=== PATIENT | female | born 1960 | race Caucasian/White ===

== ENCOUNTER 2017-03-15 08:08 | Observation (INO) | payer OTHER ==
[~2017-03-15] VITALS: Ht 157.5 cm; Wt 102.3 kg
--- NOTE | ~2017-03-15 | HEMODYNAMI ---
PATIENT:ASHLEY CORONA MEDICAL RECORD: [id number] : 60 LOCATION:[facility] D.2109 ADMISSION DATE: 03/15/17 Generatedon:03/15/201716:02 Patient name: ASHLEY CORONA Patient #: [id number] SSN: DO B: 1960 Date of study: 03/15/2017 Page: Of Hemodynamic Procedure Report Patient Data Patient Demographics Procedure consent was obtained First Name: ASHLEY Gender: Female Last Name: CJ : 1960 Middle Initial: A Age: 56 year(s) Patient #: [id number] Race: Unknown Additional ID: [id number] Contact details [address]: [address] [place] [address] State: [place] City: [place] Zip code: [address] Past Medical History Allergies Allergen Reaction Date Comments Reported Other allergy 03/15/2017 Hydrocodone, azithromycin Admission Admission Data Admission Date: 03/15/2017 Admission Time: 10:38 Room #: D.2109 Lab Results Lab Result Date: 03/15/2017 Lab Result Time: 0:00 Biochemistry Name Units Result Min Max CK-MB ng/ml 1.1 --(-*--)-- 0 3.6 Creatinine mg/dl 0.9 --(-*--)-- 0.6 1.3 Creatinine l 72 --(-*--)-- 21 215 Kinase Troponin l ng/ml 0.017 --(-*--)-- 0 0.06 CBC Name Units Result Min Max Hematocrit % 41.6 -*(----)-- 42 54 Hemoglobin g/dl 13.7 --(*---)-- 13.5 17.5 Procedure Procedure Types Cath Procedure Diagnostic Procedure [facility] w/Coronaries Miscellaneous Procedures Moderate Sedation up to 15 minutes Procedure Description Procedure Date Procedure Date: 03/15/2017 Procedure Start Time: 15:53 Procedure End Time: 16:01 Procedure Staff Name Function Kieran Penn MD Performing Physician Jamal Crespo RT Scrub Elva Alexis RN Nurse Cassidy Fleming RT Monitor Procedure Data Cath Procedure Fluoroscopy Diagnostic fluoroscopy Total fluoroscopy Time: 0.6 time: 0.6 min min Diagnostic fluoroscopy Total fluoroscopy dose: 249 dose: 249 mGy mGy Contrast Material Contrast Material Type Amount (ml) Isovue 300 54 Entry Location Entry Primary Successful Side Size Upsize Upsize Entry Closure Succes sful Closure Location (Fr) 1 (Fr) 2 (Fr) Remarks Device Remarks Femoral Right 5 Fr Exoseal artery Estimated blood loss: 5 ml Diagnostic catheters Device Type Used For End Catheter Placement Cordis 5Fr Pigtail LV Angiography Catheter (MP) Cordis 5Fr JL 4.0 Left Coronary Catheter (MP) Angiography Cordis 5Fr 3DRC Catheter Right Coronary (MP) Angiography Procedure Complications No complications Procedure Medications Medication Administration Route Dosage Oxygen NC 2 l/min Heparin Flush Bag added to field 2 bags (1000units/500ml NS) Lidocaine 2% added to field 20 Versed I.V. 1 mg Fentanyl I.V. 50 mcg Versed I.V. 1 mg Fentanyl I.V. 50 mcg Fentanyl I.V. 50 mcg Hemodynamics Rest HGB: 13.7 (g/dl) Heart Rate: 92 (bpm) Snapshots Pre Cath Intra NCS Post Cath Vital Signs Time Heart Resp SPO2 NIBP (mmHg) Rhythm Pain Sedation Rate (ipm) (%) Status Level (bpm) 15:48:17 84 15 100 148/89(115) NSR 0 (11) 10(A) , No pain 15:52:37 97 12 100 133/85(106) NSR 0 (11) 10(A) , No pain 15:56:55 91 13 97 128/78(113) NSR 0 (11) 9(A) , No pain 16:01:15 89 18 99 117/77(108) NSR 0 (11) 9(A) , No pain Medications Time Medication Route Dose Verified Delivered Reason Notes Effec tiveness by by 15:47:23 Oxygen NC 2 Kieran Stevenson Per l/min Fili Alexis RN physician 15:47:32 Heparin Flush added 2 Kieran Alcaraz used for Bag to bags Fili Penn MD procedure (1000units/500ml field NS) 15:47:38 Lidocaine 2% added 20ml Kieran Alcaraz used for to vial Fili Penn MD procedure field 15:49:05 Versed I.V. 1 mg Kieran Elva for Fili Alexis RN sedation 15:50:16 Fentanyl I.V. 50 Kieran Elva for mcg Fili Alexis RN sedation 15:52:31 Versed I.V. 1 mg Kieran Elva for Fili Alexis RN sedation 15:52:34 Fentanyl I.V. 50 Kieran Elva for mcg Fili Alexis RN sedation 15:54:10 Fentanyl I.V. 50 Kieran Elva for mcg Fili Alexis RN sedation Procedure Log Time Note 15:25:30 Ariel Zacarias RT(R) sent for patient. Start room use. 15:29:21 Time tracking: Regular hours 15:29:25 Plan of Care:Hemodynamics will remain stable., Cardiac rhythm will remain stable., Comfort level will be maintained., Respiratory function will remain adequate., Patient/ family verbilizes understanding of procedure., Procedure tolerated without complication., Recovers from procedure without complications.. 15:39:49 Patient received from PCU to CCL 2 Alert and oriented. Tansferred to table in Supine position. 15:39:50 Warm blankets applied, and eduarda hugger turned on for patient comfort. 15:39:51 Correct patient and procedure confirmed by team. 15:39:52 Signed procedure consent form obtained from patient. 15:39:53 ECG and BP/O2 sat monitors applied to patient. 15:39:54 Full Disclosure recording started 15:40:08 H&P Date Dictated: 03/15/2017 ER History on chart.. 15:40:10 Pre-procedure instructions explained to patient. 15:40:10 Pre-op teaching completed and patient verbalized understanding. 15:40:16 Family in patients room. 15:40:23 Patient NPO since Breakfast. 15:41:05 Patient allergic to Other allergyHydrocodone, azithromycin 15:41:08 Is the patient allergic to Iodine/contrast media? No. 15:41:30 Is patient on blood thinner?No 15:41:34 Patient diabetic? No. 15:44:43 Vital chart was started 15:47:23 Oxygen 2 l/min NC was administered by Elva Alexis RN; Per physician; 15:47:30 Previous problem with sedation/anesthesia? No ? 15:47:32 Heparin Flush Bag (1000units/500ml NS) 2 bags added to field was administered by Kieran Penn MD; used for procedure; 15:47:32 Snore? Yes 15:47:33 Sleep apnea? No 15:47:34 Deviated septum? No 15:47:35 Opens mouth fully? Yes 15:47:35 Sticks out tongue? Yes 15:47:37 Airway obstruction? No ? 15:47:38 Lidocaine 2% 20ml vial added to field was administered by Kieran Penn MD; used for procedure; 15:47:39 Dentures? No ? 15:47:43 Pre procedure: right dorsailis pedis pulse 2+ Normal; easily identifiable; not easily obliterated 15:47:48 Pre procedure: right radial pulse 1+ Palpable, but thready & weak; easily obliterated 15:47:50 Patient pain scale 0/10 ?. 15:47:56 IV patent on arrival in left forearm with 0.9% NaCl at [facility]. 15:48:01 Lab results completed and on chart. 15:48:36 Lab Result : Creatinine 0.9 mg/dl 15:48:36 Lab Result : CK-MB 1.1 ng/ml 15:48:36 Lab Result : Troponin l 0.017 ng/ml 15:48:36 Lab Result : Creatinine Kinase 72 l 15:48:36 Lab Result : Hemoglobin 13.7 g/dl 15:48:36 Lab Result : Hematocrit 41.6 % 15:48:40 Right groin area was prepped with chlora-prep and draped in sterile fashion 15:48:41 Alarms reviewed by R. N. 15:48:41 Sharps counted by scrub and verified by R.N. 15:48:45 Use device set Femoral Dx 15:48:46 Acist Syringe opened to sterile field. 15:48:46 Bag Decanter opened to sterile field. 15:48:47 Medline Cath Pack opened to sterile field. 15:48:47 Terumo 5Fr Milroy Sheath opened to sterile field. 15:48:47 [facility] James 260cm J .035 wire opened to sterile field. 15:48:49 Acist Hand Control opened to sterile field. 15:48:49 Acist Manifold opened to sterile field. 15:48:49 Diagnostic Infinity 5Fr Multipack catheter opened to sterile field. 15:48:50 Tegaderm 4 x 4 opened to sterile field. 15:48:57 Final Timeout: patient, procedure, and site verified with staff and physician. All members of the team are in agreement. 15:48:59 Right groin site verified by team. 15:49:01 Physical assessment completed. ASA score P 2 - A patient with mild systemic disease as per Kieran Penn MD. 15:49:04 Sedation plan: IV Moderate Sedation Versed, Fentanyl 15:49:05 Versed 1 mg I.V. was administered by Elva Alexis RN; for sedation; 15:49:10 Baseline sample Acquired. 15:50:16 Fentanyl 50 mcg I.V. was administered by Elva Alexis RN; for sedation; 15:52:31 Versed 1 mg I.V. was administered by Elva Alexis RN; for sedation; 15:52:34 Fentanyl 50 mcg I.V. was administered by Elva Alexis RN; for sedation; 15:53:03 Procedure started. 15:53:08 Local anesthetic to right femoral artery with Lidocaine 2% by Kieran Penn MD.INITIAL ACCESS ONLY 15:53:32 A 5 Fr sheath was inserted into the Right Femoral artery 15:53:35 Zero performed for pressure channel P1 15:54:10 Fentanyl 50 mcg I.V. was administered by Elva Alexis RN; for sedation; 15:54:29 A Cordis 5Fr Pigtail Catheter (MP) was advanced over the wire and used for LV Angiography. 15:54:53 LV gram done using WEBBER 15:54:58 EF : 50 % 15:55:01 Injector settings: Ml/sec: 10, Volume: 20, 15:55:02 Catheter removed. 15:55:10 A Cordis 5Fr JL 4.0 Catheter (MP) was advanced over the wire and used for Left Coronary Angiography. 15:56:09 Catheter removed. 15:56:29 A Cordis 5Fr 3DRC Catheter (MP) was advanced over the wire and used for Right Coronary Angiography. 15:56:48 Catheter removed. 15:56:56 Cordis 5Fr Exoseal opened to sterile field. 15:57:09 Sheath removed intact; hemostasis achieved with Exoseal to the Right Femoral artery. 15:57:21 Cordis 5Fr Exoseal opened to sterile field. 15:57:24 Procedure ended.(Physican Out) 15:57:34 Fluoroscopy time 00.60 minutes. 15:57:37 Fluoroscopy dose: 249 mGy 15:57:37 Flurop Dose total: 249 15:58:29 Contrast amount:Isovue 300 54ml. 15:58:30 Sharps counted by scrub and verified by R.N. 15:58:34 Insertion/operative site no bleeding no hematoma. 15:58:38 Post-op/insertion site Right Femoral artery dressed using a 4 x 4 and Tegaderm. 15:58:40 Post right femoral artery:stable, clean and dry 15:58:42 Post Procedure Pulses reassessed and unchanged 15:58:45 Post-procedure physical assessment completed. ASA score P 2 - A patient with mild systemic disease as per Kieran Penn MD. 15:58:50 Post procedure rhythm: unchanged. 15:58:52 Estimated blood loss: 5 ml 15:58:58 Post procedure instruction explained to patient.Patient verbalizes understanding. 15:58:58 Patient needs reinforcement of post procedure teaching. 15:59:06 Procedure type changed to Cath procedure, Diagnostic procedure, LHC, LHC w/Coronaries, Miscellaneous Procedures, Moderate Sedation up to 15 minutes 15:59:10 Procedure Complication : No complications 15:59:12 See physician's report for complete and final results. 15:59:29 Procedure and supply charges have been captured, reviewed, submitted and are correct. 16:01:33 Vital chart was stopped 16:01:34 Report given to PCU. 16:01:39 Patient transfered to PCU with Bed. 16:01:43 Procedure ended. 16:01:43 Full Disclosure recording stopped 16:01:51 End room use (Document Last) Device Usage Item Name Manufacture Quantity Catalog Hospital Part Current Minimal Lo t# / Number Charge Number Stock Stock Serial# Code [facility]ist [facility] 1 [id number] [id number] [id number] 539602 20 Syringe [employer] Bag Microtek 1 2002S [id number] 27005 [id number] 5 [employer] Medline Cardinal 1 [id number] 916407 28863 449022 5 Cath Pack Health Terumo 5Fr Terumo 1 [id number] 984399 535752 [address] [facility] 1 920698 094083 644345 882916 30 260cm J .035 wire Acist Hand Acist 1 21165 390456 290911 485368 5 Control [employer] Inc Acist Acist 1 82280 367552 738316 492880 5 Manifold [employer] Diagnostic Cardinal 1 [id number] 536029 30097 359227 30 Infinity Health 5Fr Multipack catheter Tegaderm 4 3M 1 1626W 648185 966933 746743 5 x 4 Cordis 5Fr Cardinal 1 314293 5 Pigtail Health Catheter (MP) Cordis 5Fr Cardinal 1 780244 5 JL 4.0 Health Catheter (MP) Cordis 5Fr Cardinal 1 500716 5 3DRC Health Catheter (MP) Cordis 5Fr Cardinal 2 EX500 073882 118797 538270 10 BalaBit Signature Audit Keaton Stage Time Signature Unsigned Intra-Procedure 03/15/2017 Cassidy 4:02:02 PM Counts RT(R) Signatures Monitor : Cassidy Signature : Counts RT Date : Time : [address] [address]
[2017-03-15 08:58] LABS: BASOPHILS 0.6 % (0-2); EOSINOPHILS 1.1 % (0-7); HEMATOCRIT 41.6 % (36.0-48.0); HEMOGLOBIN 13.7 g/dL (12-16); IMMATURE GRANULOCYTES 0.2 % (0-5); LYMPHOCYTES 21.2 % (15-50); MCH 28.8 pg (26.0-34.0); MCHC 32.9 g/dL (31.0-37.0); MCV 87.6 fL (80.0-100.0); MEAN PLATELET VOLUME 10.5 fL (7.4-10.4); MONOCYTES 6.2 % (2-11); NEUTROPHILS 70.7 % (40-80); PLATELET COUNT 248 10x3/uL (130-400); RBC 4.75 10x6/uL (4.00-5.40); RDW 13.2 % (11.5-14.5); WBC 8.7 10x3/uL (4.8-10.8)
[2017-03-15 09:15] LABS: ALBUMIN 3.8 g/dL (3.4-5.0); ALKALINE PHOSPHATASE 85 U/L (46-116); ALT (SGPT) 22 U/L (10-68); CALC OSMOLALITY 282 mosm/kg (275-300); CALCIUM 9.3 mg/dL (8.5-10.1); CHLORIDE - SERUM 104 mmol/L (98-107); CREATININE - SERUM 0.9 mg/dL (0.6-1.3); GLUCOSE 127 mg/dL (74-106); POTASSIUM - SERUM 3.8 mmol/L (3.5-5.1); PROTEIN - SERUM 7.9 g/dL (6.4-8.2); SODIUM 141 mmol/L (136-145); UREA NITROGEN 13 mg/dL (7-18); eGFR NON AFRICAN AMERICAN 69 mL/min (90-120)
[2017-03-15 09:26] LABS: CHOL - HDL RATIO 2.6 ratio (2.3-4.1); CHOLESTEROL, TOTAL 209 mg/dL (0-200); CKMB 1.1 U/L (0.0-3.6); CREATINE KINASE 72 UL (21-215); HDL CHOLESTEROL 81 mg/dL (32-96); LDL CHOLESTEROL 109 mg/dL (0-100); LDL-HDL RATIO 1.3 ratio (1.5-3.5); TRIGLYCERIDE 97 mg/dL (30-200); TROPONIN-I < 0.017 ng/mL (0.000-0.060)
--- NOTE | 2017-03-15 11:58 | NUR ---
RECEIVED PATEINT FROM ER AT THIS TIME VIA WHEELCHAIR. PATIENT ABLE TO TRANSFER SELF FROM WHEELCHAIR TO BED AND AMBULATED TO RESTROOM. NO DISTRESS. CALL LIGHT PLACED WITHIN REACH.
[2017-03-15 12:22] VITALS: BP 135/78
--- NOTE | 2017-03-15 13:01 | NUR ---
LIGHT LUNCH PROVIDED. TELEMETRY APPLIED.
[2017-03-15 13:23] VITALS: BP 135/78; Ht 157.5 cm; Wt 102.3 kg
--- NOTE | 2017-03-15 13:28 | NUR ---
CONSENTS SIGNED AND PLACED ON CHART FOR HEART CATH TODAY. NO DISTRESS.
--- NOTE | 2017-03-15 15:30 | NUR ---
PREOPT MEDICATION ADMINISTERED AT THIS TIME. NO DISTRESS. FAMILY AT BEDSIDE. CALL LIGHTWITHIN REACH.
--- NOTE | 2017-03-15 15:40 | NUR ---
PATIENT LEFT UNIT VIA BED FOR RN NIGHT IN NO ACUTE DISTRESS.
[2017-03-15 16:00] VITALS: BP 113/59
--- NOTE | 2017-03-15 16:30 | NUR ---
PATIENT RETURNED FROM INSIDE UPHOLSTERER. CLEAN CATH. PERIPHERAL PULSES PATENT. NO HEMATOMA FORMATION. NO BLEEDING TO RIGHT GROIN. DRESSING CLEAN DRY AND INTACT. PATIENT EASILY AROUSED. BP 108/61. NO DISTRESS.
--- NOTE | 2017-03-15 17:21 | NUR ---
RESTING WELL WITH EYES OPEN. FEMALE VISITOR AT BEDSIDE. CALL LIGHT WITHIN REACH. NO BLEEDING FROM SITE. DRESSING CLEAN DRY AND INTACT. PERIPHERAL PULSES PATENT. NO DISTRESS.
--- NOTE | 2017-03-15 19:08 | NUR ---
1835 20 GAUGE IV REMOVED FROM LEFT AC. NO BLEEDING FROM SITE. 2X2 GAUZE APPLIED AND SECURED WITH TAPE. CATHETER TIP INTACT. TOLERATED D/C IV WELL. 1840 DISCHARGE INSTRUCTIONS PROVIDED TO PATIENT. VERBALIZED UNDERSTANDING OF ALL INSTRUCTIONS PROVIDED. NO QUESTION FOR THIS OPERATIONS MANAGEMENT TRAINEE. 1845 LEFT UNIT VIA WHEELCHAIR WITH ALL PERSONAL BELONGINGS. NO DISTRESS UPON LEAVING UNIT. PATIENT DISCHARGED TO HOME WITH FAMILY VIA PRIVATE CAR AFTER HAVING CLEAN HEART CATH.
== END 2017-03-15 18:45 | disposition home or self-care (01) ==
LOC: D.ER 08:08 → OBSVTIME 10:38 → D.M2 10:38
PROVIDERS: Emergency Medicine; ADMIT Internal Medicine Interventional Cardiology
DX: R07.9 Chest pain, unspecified (principal)

== ENCOUNTER → 2017-08-25 16:07 | Outpatient (CLI) | payer OTHER ==
[2017-03-15 13:23] VITALS: BMI 41.2
== END | disposition home or self-care (01) ==
LOC: D.MAMMO 15:30
DX: Z12.31 Encounter for screening mammogram for malignant neoplasm of breast (principal)

== ENCOUNTER → 2018-02-10 15:22 | Outpatient (CLI) | payer OTHER ==
[2017-03-15 13:23] VITALS: BMI 41.2
== END | disposition home or self-care (01) ==
LOC: D.MRI 15:22
DX: S83.231A Complex tear of medial meniscus, current injury, right knee, initial encounter (principal); X58.XXXA Exposure to other specified factors, initial encounter

== ENCOUNTER → 2018-10-13 15:25 | Outpatient (CLI) | payer OTHER ==
[2017-03-15 13:23] VITALS: BMI 41.2
== END | disposition home or self-care (01) ==
LOC: D.US 15:25
DX: R60.0 Localized edema (principal)

== ENCOUNTER 2019-07-18 12:00 | Outpatient (CLI) | payer OTHER ==
[2017-03-15 13:23] VITALS: BMI 41.2
== END 2019-07-18 12:30 | disposition home or self-care (01) ==
LOC: D.MAMMO 12:00
PROVIDERS: ATTEND Family Medicine
DX: Z12.31 Encounter for screening mammogram for malignant neoplasm of breast (principal)